=== PATIENT | female | born 2000 | race American Indian/Alaskan Native ===

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

== ENCOUNTER 2022-03-03 11:28 | Emergency (ER) | payer MEDICAID ==
[2022-03-03 14:57] LABS: Basophils % (Auto) 0.2 % (0.0-1.8); Eosinophils % (Auto) 0.4 % (0.0-4.3); Hematocrit 41.7 % (30.3-42.9); Hemoglobin 13.6 gm/dl (10.1-14.3); Lymphocytes # (Auto) 2.1 K/mm3 (1.2-5.4); Lymphocytes % (Auto) 18.4 % (13.4-35.0); Mean Corpuscular HGB Conc 33 % (30-34); Mean Corpuscular Volume 80 fl (79-97); Monocytes # (Auto) 0.7 K/mm3 (0.0-0.8); Monocytes % (Auto) 6.7 % (0.0-7.3); Platelet Count 299 K/mm3 (140-440); Red Blood Count 5.23 M/mm3 (3.65-5.03); Red Cell Distribution Width 14.9 % (13.2-15.2)
[2022-03-03 15:02] LABS: Alanine Aminotransferase 9 units/L (7-56); Albumin 4.1 g/dL (3.9-5); Blood Urea Nitrogen 8 mg/dL (7-17); Calcium 9.5 mg/dL (8.4-10.2); Hemolysis Index 4
[2022-03-03 15:12] LABS: BUN/Creatinine Ratio 11
--- NOTE | 2022-03-03 20:55 | Ultrasound Report ---
Obstetrical ultrasound first trimester INDICATION: Vaginal spotting FINDINGS: Endometrial thickness is about 11 mm. No intrauterine is appreciated. The right o vary contains a mildly complex cyst measuring about 2 cm in diameter. The left ovary was not visualiz ed from overlying bowel gas. No significant free pelvic fluid is appreciated. IMPRESSION: No intrauterine identified at this time. Signer Name: Dante Sainz MD Signed: 03/03/2022 8:50 PM Workstation Name: [employer]
[2022-03-03 22:25] LABS: Mucus,Urine FEW /HPF
[2022-03-03 22:31] LABS: Bilirubin,Urine Negative (Negative); Blood,Urine 3+ (Negative); Color,Urine Straw (Yellow); Protein,Urine >500 mg/dL (Negative); RBC,Urine > 182.0 /HPF (0.0-6.0); Urobilinogen,Urine < 2.0 mg/dL (<2.0)
[2022-03-03] MEDS ORDERED: ACETAMINOPHEN 500 MG TAB PO ONE (23:50)
--- NOTE | 2022-03-03 23:54 | Emergency Department Report ---
ED Female HPI - General Chief complaint: Vaginal Bleeding Stated complaint: POSSIBLE MISCARRIAGE Source: patient Mode of arrival: Ambulatory Limitations: No Limitations - History of Present Illness Initial comments: Patient is a A1 21-year-old female who is approximately 6 weeks gestation who presents to the ED with complaint of acute onset persistent pelvic cramps with vaginal bleeding for the last 12 hours. Patient states that the pain has been increasing in intensity and that the bleeding has also been worsening with large blood clots. Patient states that she tried to take [id number] medications with no relief. Patient denies dizziness, syncope, chest pain, shortness of breath, vaginal discharge, fever, chills, nausea and vomiting, sore throat, headache, lightheadedness, low back pain or change in vision. MD Complaint: vaginal bleeding, pelvic pain, other (Approximately 6 weeks gestation.) -: hour(s) (12) Location: suprapubic, other (Vaginal) Radiation: non-radiating Severity: severe Severity scale (0 -10): 7 Quality: cramping, sharp, aching Consistency: constant Improves with: none Worsens with: none Are you Now?: Yes (Approximately 6 weeks gestation.) Associated Symptoms: denies other symptoms, vaginal bleeding, abdominal pain (Ferro prapubic cramps). denies: nausea/vomiting, fever/chills, loss of appetite, dysuria, hematuria, rash, shortness of breath, syncope, weakness - Related Data Sexually active: Yes : 2 Para: 0 A: 1 Previous Rx's Medication Instructions Recorded Last Taken Type HYDROcodone/APAP 5-325 [[place] 1 - 2 each PO Q6HR PRN #14 tablet 04/19/21 Unknown Rx 5/325] Methylergonovine [Methergine] 0.2 mg PO TID #9 tablet 04/19/21 Unknown Rx Ibuprofen [Motrin] 800 mg PO Q8HR PRN #30 tablet 03/04/22 Unknown Rx cephALEXin [Keflex] 500 mg PO Q6HR #40 capsule 03/04/22 Unknown Rx Allergies Allergy/AdvReac Type Severity Reaction Status Date / Time No Known Allergies Allergy Verified 03/03/22 11:56 ED Review of Systems ROS: Stated complaint: POSSIBLE MISCARRIAGE Other details as noted in HPI Constitutional: denies: chills, fever Eyes: denies: eye pain, eye discharge, vision change ENT: denies: ear pain, throat pain Respiratory: denies: cough, shortness of breath, wheezing Cardiovascular: denies: chest pain, palpitations Endocrine: no symptoms reported Gastrointestinal: abdominal pain (Suprapubic pain). denies: nausea, vomiting, diarrhea Genitourinary: hematuria, abnormal menses (Vaginal bleeding). denies: urgency, dysuria, discharge Musculoskeletal: denies: back pain, joint swelling, arthralgia Skin: denies: rash, lesions Neurological: denies: headache, weakness, paresthesias Psychiatric: denies: anxiety, depression Hematological/Lymphatic: denies: easy bleeding, easy bruising ED Past Medical Hx - Social History Smoking Status: Never Smoker Substance Use Type: None (Denies illicit drug use) - Medications Home Medications: Home Medications Medication Instructions Recorded Confirmed Last Taken Type HYDROcodone/APAP 5-325 [[place] 1 - 2 each PO Q6HR PRN #14 tablet 04/19/21 Unknown Rx 5/325] Methylergonovine [Methergine] 0.2 mg PO TID #9 tablet 04/19/21 Unknown Rx Ibuprofen [Motrin] 800 mg PO Q8HR PRN #30 tablet 03/04/22 Unknown Rx cephALEXin [Keflex] 500 mg PO Q6HR #40 capsule 03/04/22 Unknown Rx ED Physical Exam - General Limitations: No Limitations General appearance: alert, in no apparent distress - Head Head exam: Present: atraumatic, normocephalic, normal inspection - Eye Eye exam: Present: normal appearance, PERRL, EOMI Pupils: Present: normal accommodation - ENT ENT exam: Present: normal exam, normal orophraynx, mucous membranes moist, TM's normal bilaterally, normal external ear exam - Neck Neck exam: Present: normal inspection, full ROM - Respiratory Respiratory exam: Present: normal lung sounds bilaterally. Absent: respiratory distress, wheezes, rales, rhonchi, stridor, chest wall tenderness, accessory muscle use, decreased breath sounds, prolonged expiratory - Cardiovascular Cardiovascular Exam: Present: regular rate, normal rhythm, normal heart sounds. Absent: systolic murmur, diastolic murmur, rubs, gallop - GI/Abdominal GI/Abdominal exam: Present: soft, tenderness (Suprapubic tenderness), normal bowel sounds. Absent: guarding, rebound, hyperactive bowel sounds, hypoactive bowel sounds, organomegaly, mass - Extremities Exam Extremities exam: Present: normal inspection, full ROM, normal capillary refill. Absent: tenderness, pedal edema, joint swelling, calf tenderness - Back Exam Back exam: Present: normal inspection, full ROM. Absent: tenderness, CVA tend erness (R), CVA tenderness (L), muscle spasm, paraspinal tenderness, vertebral tenderness - Neurological Exam Neurological exam: Present: alert, oriented X3, CN II-XII intact, normal gait, reflexes normal - Psychiatric Psychiatric exam: Present: normal affect, normal mood - Skin Skin exam: Present: warm, dry, intact, normal color. Absent: rash ED Course Vital Signs 03/03/22 11:51 Temperature 98.8 F Pulse Rate 100 H Respiratory 20 Rate Blood Pressure 103/82 [Right] O2 Sat by Pulse 100 Oximetry ED Medical Decision Making - Lab Data Result diagrams: 03/03/22 13:43 03/03/22 13:43 - Radiology Data Radiology results: report reviewed, [place] [address] Ultrasound Report Signed Patient: LUIS LOWE MR#: [id number] : 2000 Acct:[id number] Age/Sex: 21 / F ADM Date: 03/03/22 Loc: ED Attending Dr: Ordering Physician: ANY HICKEY Date of Service: 03/03/22 Procedure(s): US OB <= 14 weeks fetus Accession Number(s): [id number] cc: ANY HICKEY Obstetrical ultrasound first trimester INDICATION: Vaginal spotting FINDINGS: Endometrial thickness is about 11 mm. No intrauterine is appreciated. The right ovary contains a mildly complex cyst measuring about 2 cm in diameter. The left ovary was not visualized from overlying bowel gas. No significant free pelvic fluid is appreciated. IMPRESSION: No intrauterine identified at this time. Signer Name: Dante Sainz MD Signed: 03/03/2022 8:50 PM Workstation Name: [id number] Transcribed By: Dictated By: Dante Sainz MD Electronically Authenticated By: Dante Sainz MD Signed Date/Time: 03/03/222049 DD/ 48 TD/TT: - Differential Diagnosis Miscarriage; ectopic ; UTI; subcho. bleed; ovarian cyst Critical care attestation.: If time is entered above; I have spent that time in minutes in the direct care of this critically ill patient, excluding procedure time. ED Disposition Clinical Impression: Inevitable complete miscarriage without complication, Acute urinary tract infection, Vaginal bleeding affecting early Disposition: 01 HOME / SELF CARE / HOMELESS Is pt being admited?: No Does the pt Need Aspirin: No Condition: Stable Instructions: Miscarriage, [id number], Urinary Tract Infection, Adult, [id number], Vaginal Bleeding During , First Trimester, Epem-so-Zehi Additional Instructions: All lab test results were reviewed and are all nonactionable except for urinalysis that showed significant urinary tract infection. [place] [id number]. The transvaginal ultrasound showed no intrauterine identified at this time but mildly complex right ovarian cyst measuring 2 cm in diameter. Therefore maintain a complete pelvic rest, take medication as needed for pain and antibiotics for UTI, return to the ED or to your [facility] physician in 2 days for serial repeat hCG quant studies to ascertain the viability of the or the completion of miscarriage. Otherwise return to the ED immediat kenneth if symptoms get worse. Prescriptions: cephALEXin [Keflex] 500 mg PO Q6HR #40 capsule Ibuprofen [Motrin] 800 mg PO Q8HR PRN #30 tablet PRN Reason: Pain , Severe (7-10) Referrals: LALO BUTLER MD [Primary Care Provider] - 3-5 Days Forms: Work/School Release Form(ED) Time of Disposition: 00:07 Print Language: TAMAZIGHT
[2022-03-04 01:19] VITALS: BP 131/81
== END 2022-03-04 01:18 | disposition home or self-care (01) ==
LOC: ED 11:28
DX: O03.4 Incomplete spontaneous abortion without complication (principal); O23.31 Infections of other parts of urinary tract in pregnancy, first trimester; N39.0 Urinary tract infection, site not specified; Z3A.01 Less than 8 weeks gestation of pregnancy
CPT/HCPCS: 36415; 76801; 80053; 81001; 84702; 85025; 87086; 99284